=== PATIENT | female | born 1950 | race Caucasian/White ===

== ENCOUNTER 2024-08-20 13:45 | Outpatient (CLI) | payer MEDICARE, SELFPAY ==
--- NOTE | ~2024-08-20 | MM_ITS ---
EXAMINATION: MM screening jason BI w rachel HISTORY: Screening mammogram TECHNIQUE: Craniocaudal and mediolateral oblique 3-D tomosynthesis images were obtained and synthetic 2-D images were generated. CAD analysis was submitted and interpreted. COMPARISON: No prior mammogram is available for comparison at this institution. BREAST PARENCHYMAL COMPOSITION:Dense: The breasts are heterogeneously dense, which may obscure small masses. FINDINGS: There is asymmetry or small mass in the lower, inner left breast with adjacent biopsy clip. There is asymmetry in the central subareolar right breast on MLO view. No suspicious mammographic os sifications. IMPRESSION: Right breast asymmetry, and left breast mass with adjacent biopsy clip. Submission of prior exams is recommended to assess for stability or interval change. BI-RADS Category 0: Incomplete: Needs comparisons. Reviewed, dictated and finalized at [facility]. Y CLERK IMPRESSION: Right breast asymmetry, and left breast mass with adjacent biopsy clip. Submiss ion of prior exams is recommended to assess for stability or interval change. BI-RADS Category 0: Incomplete: Needs comparisons.
== END 2024-08-20 13:46 | disposition home or self-care (01) ==
PROVIDERS: PCP Internal Medicine; Visit Provider Internal Medicine
DX: Z12.31 Encounter for screening mammogram for malignant neoplasm of breast (principal); R92.8 Other abnormal and inconclusive findings on diagnostic imaging of breast
CPT/HCPCS: 77063; 77067

== ENCOUNTER 2024-10-02 08:44 | Outpatient (CLI) | payer MEDICARE, SELFPAY ==
--- NOTE | ~2024-10-02 | MMUS_ITS ---
EXAMINATION: MM diagnostic jason RT w rachel, US breast RT limited HISTORY: Follow-up right breast asymmetries TECHNIQUE: Additional 3-D tomosynthesis images of the right breast were performed and synthetic 2-D i mages were generated. CAD analysis was submitted and interpreted. High resolution Limited right breas t ultrasound was performed. COMPARISON: Comparison to multiple prior studies sequentially, with oldest reviewed study dated 12/15. BREAST PARENCHYMAL COMPOSITION: Dense: The breasts are heterogeneously dense, which may obscure small masses FINDINGS: MAMMOGRAPHIC FINDINGS: Periareolar/subareolar asymmetries of the right breast are slightly less apparent with spot compressi on views. No discrete mass or architectural distortion is identified. There are no suspicious calcifi cations. ULTRASOUND: Limited right breast ultrasound: There are mildly prominent ducts. No discrete mass identified. There is focal calcification near the nipple measuring 3 mm. IMPRESSION: 1. Probable benign right breast asymmetry in the subareolar/periareolar location without sonographic correlate. 2. Recommend 6 month follow-up diagnostic right mammogram. BI-RADS category 3, probably benign findings. Reviewed, dictated and finalized at [facility]. IMPRESSION: 1. Probable benign right breast asymmetry in the subareolar/periareolar locatio n without sonographic correlate. 2. Recommend 6 month follow-up diagnostic right mammogram. BI-RADS category 3, probably benign findings.
== END 2024-10-02 08:45 | disposition home or self-care (01) ==
LOC: MICIMG 08:45
PROVIDERS: PCP Internal Medicine; Visit Provider Internal Medicine
DX: R92.8 Other abnormal and inconclusive findings on diagnostic imaging of breast (principal)
CPT/HCPCS: 76642; 77061; 77065; G0279